=== PATIENT | female | born 1955 | race Caucasian/White ===

== ENCOUNTER → 2017-01-26 | Emergency (ER) | payer OTHER ==
[2017-01-26 15:12] VITALS: BP 118/62; PULSE 85; RESP 18; TEMP 98; O2SAT 96
--- NOTE | 2017-01-26 15:27 | UCPHY ---
H & P Patient Type: New Chief Complaint Nursing Narrative: c/o RT eye scratch since SAt night HPI/ROS: HPI CHIEF COMPLAINT: Right eye pain, scratched her eye HISTORY OF PRESENT ILLNESS: This patient very pleasant 61-year-old female denies any significant medical or surgical history she presents emergency room with right eye pain. She tells me she was washing her face on Thursday and scratched her right eye. She now has continuing pain. Denies loss of vision, double vision, blurry vision. She complains of a discomfort in the corner medial canthus region of her right eye. She denies history of glaucoma. Denies trouble seen. Past Medical History: No medical history Past Surgical History: no surgical history Social History: works as a speech pathologist at [employer], denies use of drugs alcohol tobacco products Family History: Noncontributory ROS REVIEW OF SYSTEMS: A comprehensive 10 point review of systems is otherwise negative aside from elements mentioned in the history of present illness. Exam Constitutional triage nursing summary reviewed, vital signs reviewed, awake/ alert. Eyes normal conjunctivae and sclera, EOMI, PERRLA. Left eye normal. Right eye : Alcaine was applied to the eye which gave her great relief, fluorescein was applied there is no uptake, conjunctiva is normal, anterior chambers flat, there is no flare, posterior eye exam without dilatation is unremarkable, no evidence of significant corneal abrasion, globes are soft, visual acuity is normal. No evidence of acute angle glaucoma. Globe soft. No proptosis. Lids everted no foreign body seen. HENT normal inspection, atraumatic, moist mucus membranes, no epistaxis, neck supple/ no meningismus, no raccoon eyes. Respiratory clear to auscultation bilaterally, normal breath sounds, no respiratory distress, no wheezing. Cardiovascular rate normal, regular rhythm, no murmur, no edema, distal pulses normal. Gastrointestinal soft, non-tender, no rebound, no guarding, normal bowel sounds, no distension, no pulsatile mass. Genitourinary no CVA tenderness. Musculoskeletal no midline vertebral tenderness, full range of motion, no calf swelling, no tenderness of extremities, no meningismus, good pulses, neurovascularly intact. Skin pink, warm, & dry, no rash, skin atraumatic. Neurologic awake, alert and oriented x 3, AAOx3, moves all 4 extremities equally, motor intact, sensory intact, CN II-XII intact, normal cerebellar, normal vision, normal speech. Psychiatric normal mood/affect. Heme/Lymph/Immune no lymphadenopathy. Differential Diagnosis: Includes but is not limited to in a particular order, corneal abrasion, conjunctival abrasion, conjunctival tear, globe trauma, foreign body Medical Decision Making: In the Urgent Care he has no evidence of significant trauma to her eye, do not appreciate a corneal tear abrasion, patient remembers injuring her eye when rubbing it washing her face on Thursday. She feels much better after Alcaine applied. I do not see uptake on fluorescein. No evidence acute angle glaucoma. Patient be placed on Ocuflox eyedrops, and will need close ophthalmology follow-up next 12:48 p.m. forty eight hours. She understands return to the urgent care or emergency room if she has worsening symptoms questions or concerns. Ibuprofen for pain control. Source: Patient - Medical/Surgical History Hx Asthma: No Hx Chronic Respiratory Disease: No Hx Diabetes: No Hx Cardiac Disease: No Hx Renal Disease: No Hx Cirrhosis: No Hx Alcoholism: No Hx HIV/AIDS: No Hx Splenectomy or Spleen Trauma: No Other PMH: hysterectomy,knee surg - Family History Significant Family History: No pertinent family hx - Social History Smoking Status: Never smoked Constitutional: Initial Vital Signs Temperature (C) 36.6 C 01/26/17 15:11 Heart Rate 85 01/26/17 15:11 Respiratory Rate 18 01/26/17 15:11 Blood Pressure 118/62 01/26/17 15:11 O2 Sat (%) 96 01/26/17 15:11 O2 Delivery Mode Room Air Allergies/Adverse Reactions: No Known Allergies Allergy (Verified 04/29/16 08:21) Home Medications: Medication Instructions Recorded Ibuprofen [Motrin (*)] 800 mg PO Q6-8PRN #7 tab 01/26/17 Ofloxacin 0.3% [Ocuflox 0.3%] 2 drops OP QID #1 opht.btl 01/26/17 Departure - Departure Disposition: Home, Routine, Self-Care Clinical Impression: Pain, eye, right Condition: Good Instructions: Eye Pain (ED) Additional Instructions: 1.Please use your antibiotic eyedrops as prescribed. 2.Return to the urgent care or emergency room if worsening symptoms questions or concerns. 3. take ibuprofen for pain control. 4. Please follow up with Ophthalmology next 24-48 hours. You been referred to them. Please call for an appointment. Prescriptions: Ibuprofen [Motrin (*)] 800 mg PO Q6-8PRN #7 tab Ofloxacin 0.3% [Ocuflox 0.3%] 2 drops OP QID #1 opht.btl - PQRS PQRS Measurement: n/a
== END | disposition home or self-care (01) ==
LOC: CED 14:54
DX: H57.11 Ocular pain, right eye (principal)
CPT/HCPCS: 99204-PO; G0463-PO